=== PATIENT | female | born 1960 ===

== ENCOUNTER 2021-01-18 10:30 | Inpatient (IN) | payer OTHER ==
[~2021-01-18] VITALS: Ht 160 cm; Wt 67.1 kg
[2021-01-18] MEDS ORDERED: METFORMIN HCL500 M3 PO (13:18)
[2021-01-18] MEDS ORDERED: ATACAND4 MG PO (13:19)
[2021-01-18] MEDS ORDERED: PEPCID AC20 MG PO (13:19)
[2021-01-18] MEDS ORDERED: PROTONIX40 MG PO (13:19)
[2021-01-18] MEDS ORDERED: ACETAMINOPHEN500 M1 PO (13:20)
[2021-01-18] MEDS ORDERED: FLOVENT DISKU100 MCG IH (13:20)
[2021-01-18] MEDS ORDERED: CYMBALTA60 MG PO (13:20)
[2021-01-18] MEDS ORDERED: BENADRYL25 MG PO (13:20)
[2021-01-24] MEDS ORDERED: PERCOCET 5-3251 EACH PO (09:25)
[2021-01-24] MEDS ORDERED: MEDROLPACK PO (09:25)
[2021-01-24] MEDS ORDERED: DIAZEPAM5 MG PO (09:25)
[2021-01-24] MEDS ORDERED: COLACE100 MG PO (09:25)
[2021-01-24] MEDS ORDERED: ZOFRAN8 MG PO (10:13)
== END 2021-01-25 14:23 | disposition home or self-care (01) | DRG 473 ==
LOC: PED 01-24 05:37 → O/R 01-24 05:37 → SURH 01-24 10:30 → PED 01-24 15:00
PROVIDERS: ADMIT Orthopaedic Surgery Orthopaedic Surgery of the Spine; ATTEND Orthopaedic Surgery Orthopaedic Surgery of the Spine
PROC: XRG20F3 Fusion of 2 or more Cervical Vertebral Joints using Radiolucent Porous Interbody Fusion Device, Open Approach, New Technology Group 3 (ICD-10-PCS; 2021-01-24)
PROC: 0RG20J0 Fusion of 2 or more Cervical Vertebral Joints with Synthetic Substitute, Anterior Approach, Anterior Column, Open Approach (ICD-10-PCS; 2021-01-24)
PROC: 07DS3ZZ Extraction of Vertebral Bone Marrow, Percutaneous Approach (ICD-10-PCS; 2021-01-24)
PROC: 0RT30ZZ Resection of Cervical Vertebral Disc, Open Approach (ICD-10-PCS; principal; 2021-01-24 10:30)
DX: M50.01 Cervical disc disorder with myelopathy, high cervical region (principal); M48.02 Spinal stenosis, cervical region; I10 Essential (primary) hypertension; E11.9 Type 2 diabetes mellitus without complications; Z79.84 Long term (current) use of oral hypoglycemic drugs